=== PATIENT | female | born 1980 | race Caucasian/White ===

== ENCOUNTER 2018-08-15 06:33 | Inpatient (IN) ==
[2018-08-15] MEDS ORDERED: ONDANSETRON 4 MG/2 ML VIAL IV PRN ×2 (07:09→19:34)
[2018-08-15] MEDS: LACTATED RINGERS 1,000 ML IV SCH ×3 (07:17→16:18)
[2018-08-15] MEDS ORDERED: OXYTOCIN/LR 20 UNIT/1,000 ML BAG IV SCH (07:30)
[2018-08-15] MEDS ORDERED: NALOXONE 0.4 MG/ML VIAL IV PRN (07:38)
[2018-08-15] MEDS ORDERED: LACTATED RINGERS 250 ML IV PRN (07:38)
[2018-08-15] MEDS ORDERED: FAMOTIDINE 20 MG/2 ML VIAL IV ONE (07:38)
[2018-08-15] MEDS ORDERED: hydrOXYzine HCL 25 MG/1 ML VIAL IM PRN (07:38)
[2018-08-15] MEDS ORDERED: CITRIC ACID/SODIUM CITRATE 30 ML UDCUP PO ONE (07:38)
[2018-08-15] MEDS ORDERED: diphenhydrAMINE 50 MG/1 ML VIAL IV PRN (07:38)
[2018-08-15] MEDS ORDERED: ePHEDrine 50 MG/ML AMP IV PRN (07:38)
[2018-08-15] MEDS ORDERED: PROMETHAZINE 25 MG/1 ML VIAL IM ONE (07:38)
[2018-08-15 07:42] LABS: Basophils % 0.2 % (0.0-0.8); Eosinophils % 0.1 % (0.00-10.9); Hematocrit 31.1 VOL% (35.7-47.0); Hemoglobin 9.5 GM/DL (12.0-16.0); Immature Granulocytes % 0.5 %; Immature Granulocytes Absolute 0.04 #; Lymphocytes % 12.1 % (21.3-54.2); Mean Corpuscular HGB Conc 30.5 GM/DL (32-36); Mean Corpuscular Hemoglobin 24 PG (27-34); Mean Corpuscular Volume 79.5 FL (87-102); Monocytes # 0.5 10*3/uL (0.11-0.8); Monocytes % 5.6 % (1.7-12.7); Neutrophils # 6.9 10*3/uL (1.4-7.4); Neutrophils % 81.5 % (38.7-73.9); Platelet Count 234 T/CUMM (130-400); Red Blood Count 3.91 MC/CUMM (3.8-5.5); Red Cell Distribution Width 13.7 % (9.3-17.3); White Blood Count 8.5 T/CUMM (4-12)
[2018-08-15] MEDS ORDERED: fentaNYL 2 MCG/ROPIV 0.2% EPID 100 ML EPIDURAL SCH (08:00)
[2018-08-15 08:07] LABS: Alanine Aminotransferase 21 U/L (13-56); Albumin 2.3 G/DL (3.4-5.0); Alkaline Phosphatase 160 U/L (45-117); Aspartate Amino Transferase 23 U/L (0-37); Bilirubin,Total < 0.39 MG/DL (0.2-1.0); Blood Urea Nitrogen 11 MG/DL (7-18); Calcium 8.2 MG/DL (8.5-10.1); Glucose 88 MG/DL (74-106); Osmolality,Calculated 276.4 MOS/KG (273-304); Potassium 3.9 MMOL/L (3.5-5.1); Sodium 140 MMOL/L (136-145); Total Protein 6.5 G/DL (6.4-8.3); Uric Acid 5.2 MG/DL (2.6-6.0)
[2018-08-15 10:14] LABS: Mucus,Urine Occasional /LPF (Occasional); WBC,Urine 1 /HPF (0-6)
[2018-08-15 10:15] LABS: Apearance,Urine Clear (Clear); Urine Color Yellow (Yellow)
[2018-08-15 10:16] LABS: Bilirubin,Urine Negative (Negative); Blood, Urine Negative (Negative); Glucose,Urine (UA) Negative (Negative); Ketones,Urine Negative (Negative); Nitrite,Urine Negative (Negative); Protein,Urine Negative; Urine Specific Gravity 1.015 (1.001-1.035)
[2018-08-15] MEDS ORDERED: miSOPROStol 200 MCG TABLET ONE (16:31)
[2018-08-15] MEDS ORDERED: CARBOPROST TROMETHAMINE 250 MCG/ML AMP IM ONE (16:32)
[2018-08-15] MEDS ORDERED: METHYLERGONOVINE 0.2 MG/1 ML AMP ONE (16:32)
[2018-08-15] MEDS ORDERED: LIDOCAINE 1% 50 ML VIAL ONE (19:02)
[2018-08-15] MEDS ORDERED: MEASLES/MUMPS/RUBELLA VACCINE 0.5 ML VIAL SUBCUT ONE (19:34)
[2018-08-15] MEDS ORDERED: BISACODYL 10 MG SUPP RECTAL PRN (19:34)
[2018-08-15] MEDS ORDERED: WITCH HAZEL PADS 100/JAR TOP PRN (19:34)
[2018-08-15] MEDS ORDERED: OXYTOCIN/LR 20 UNIT/1,000 ML BAG IV ONE (19:34)
[2018-08-15] MEDS ORDERED: ACETAMINOPHEN 325 MG TABLET PO PRN (19:34)
[2018-08-15] MEDS ORDERED: BENZOCAINE 20%/MENTHOL 0.5% SPRAY 56 GM CAN TOP PRN (19:34)
[2018-08-15] MEDS ORDERED: DIPH/TET/ACEL PERT BOOSTER VACCINE 0.5 ML VIAL IM ONE (19:34)
[2018-08-15] MEDS ORDERED: LANOLIN 50% CREAM 0.3 OZ TUBE TOP PRN (19:34)
[2018-08-15] MEDS ORDERED: RHO(D) IMMUNE GLOBULIN 300 MCG SYRINGE IM ONE (19:34)
[2018-08-15] MEDS ORDERED: oxyCODONE/ACETAMINOPHEN 5-325 MG TABLET PO PRN ×2 (19:34)
[2018-08-15] MEDS ORDERED: HYDROCORTISONE 2.5% RECTAL CREAM 30 GM TUBE TOP PRN (19:34)
[2018-08-15 19:38] LABS: Cord Venous Blood HCO3 19.6 MMOL/L; Cord Venous Blood PCO2 48.6 MMHG; Cord Venous Blood PO2 18.8
[2018-08-15] MEDS ORDERED: hydrALAZINE 20 MG/1 ML VIAL IV ONE (21:05)
[2018-08-15] MEDS: DOCUSATE SODIUM 100 MG CAPSULE PO SCH (21:12)
[2018-08-15] MEDS: IBUPROFEN 800 MG TABLET PO PRN (21:25)
[2018-08-16] MEDS: IBUPROFEN 800 MG TABLET PO PRN ×2 (06:24→17:44)
[2018-08-16 06:30] LABS: Basophils % 0.2 % (0.0-0.8); Eosinophils % 0.2 % (0.00-10.9); Hematocrit 26.2 VOL% (35.7-47.0); Hemoglobin 7.8 GM/DL (12.0-16.0); Immature Granulocytes % 0.5 %; Immature Granulocytes Absolute 0.06 #; Lymphocytes # 1.3 10*3/uL (1.4-4.0); Lymphocytes % 11.2 % (21.3-54.2); Mean Corpuscular HGB Conc 29.8 GM/DL (32-36); Mean Corpuscular Hemoglobin 24 PG (27-34); Mean Corpuscular Volume 80.9 FL (87-102); Mean Platelet Volume 13.1 FL (9.6-12.0); Monocytes # 0.8 10*3/uL (0.11-0.8); Monocytes % 6.4 % (1.7-12.7); Neutrophils # 9.5 10*3/uL (1.4-7.4); Neutrophils % 81.5 % (38.7-73.9); Platelet Count 226 T/CUMM (130-400); Red Blood Count 3.24 MC/CUMM (3.8-5.5); Red Cell Distribution Width 14.1 % (9.3-17.3); White Blood Count 11.7 T/CUMM (4-12)
[2018-08-16] MEDS: FERROUS SULFATE 325 MG TABLET PO SCH ×3 (08:24→21:20)
[2018-08-16] MEDS: DOCUSATE SODIUM 100 MG CAPSULE PO SCH ×2 (08:24→21:20)
[2018-08-16] MEDS ORDERED: SODIUM CHLORIDE 0.9% 1,000 ML IV PRN (09:29)
[2018-08-16] MEDS ORDERED: FUROSEMIDE 20 MG/2 ML VIAL IV ONE (18:31)
[2018-08-16 20:36] LABS: Hematocrit 30.1 VOL% (35.7-47.0)
[2018-08-16 20:37] LABS: Hemoglobin 9.8 GM/DL (12.0-16.0)
[2018-08-17] MEDS: IBUPROFEN 800 MG TABLET PO PRN (04:42)
[2018-08-17] MEDS ORDERED: BENZOCAINE/MENTHOL LOZENGE 18/BOX PO PRN (07:24)
[2018-08-17 07:30] VITALS: BP 143/86
[2018-08-17] MEDS ORDERED: INFLUENZA VIRUS VACCINE 0.5 ML SYRINGE IM ONE (07:55)
[2018-08-17] MEDS: FERROUS SULFATE 325 MG TABLET PO SCH (08:35)
[2018-08-17] MEDS: DOCUSATE SODIUM 100 MG CAPSULE PO SCH (08:35)
== END 2018-08-17 12:30 | disposition home or self-care (01) | DRG 807 ==
LOC: N.LDOUT 06:33 → N.LD 06:36 → N.OB 21:50
PROVIDERS: ADMIT Obstetrics & Gynecology; ATTEND Obstetrics & Gynecology